=== PATIENT | male | born 1965 | race Caucasian/White ===

== ENCOUNTER 2018-03-01 10:10 | Emergency (ER) | payer SELFPAY ==
[~2018-03-01] VITALS: Ht 152.4 cm; Wt 56.7 kg
[2018-03-01 10:13] VITALS: Ht 152.4 cm; Wt 56.7 kg
[2018-03-01 11:20] LABS: BASOPHIL % 0.5 % (0-2); PLATELET COUNT 224 x10^3mcL (130-400)
[2018-03-01 11:21] LABS: RED CELL DISTRIBUTION WIDTH 17.4 % (11.5-14.5)
[2018-03-01 11:25] LABS: CALCIUM 8.3 mg/dL (8.5-10.1); CARBON DIOXIDE 30.4 mmol/L (21-32); CHLORIDE SERUM 103 mmol/L (98-107); CREATININE SERUM 0.8 mg/dL (0.7-1.3); GFR1 > 60 mL/min; GLUCOSE SERUM 86 mg/dL (74-106); POTASSIUM SERUM 3.4 mmol/L (3.5-5.1); SODIUM SERUM 143 mmol/L (136-145)
[2018-03-01 11:27] LABS: ALBUMIN 3.9 g/dL (3.4-5.0); ALKALINE PHOSPHATASE 106 U/L (46-116); ALT/SGPT 22 U/L (16-63); AST/SGOT 38 U/L (15-37); BILIRUBIN TOTAL 0.4 mg/dL (0.20-1.00); TOTAL PROTEIN, SERUM 7.8 g/dL (6.4-8.2)
[2018-03-01 11:33] LABS: CHOLESTEROL 205 mg/dL (<200); HDL CHOLESTEROL 102 mg/dL (40-60)
[2018-03-01 14:17] VITALS: BP 137/62
== END 2018-03-01 14:17 | disposition home or self-care (01) ==
LOC: ED 10:10
PROVIDERS: Emergency Medicine
DX: J44.9 Chronic obstructive pulmonary disease, unspecified (principal); F17.210 Nicotine dependence, cigarettes, uncomplicated; Z71.6 Tobacco abuse counseling
CPT/HCPCS: 36415; 83880; 99406; G0480; J7613